=== PATIENT | male | born 1945 | race Caucasian/White ===

== ENCOUNTER 2018-11-01 08:22 | Day surgery (SDC) | payer BC ==
[~2018-11-01 08:22] MED LIST: PRAV20 PO; QUET100 PO
== END 2018-11-01 10:08 | disposition home or self-care (01) ==
LOC: ORSCMMR 08:22 → ORD 11:15 → ORSCMMR 11:15 → ORD 14:00 → ORSCMMR 15:15
PROVIDERS: Orthopaedic Surgery
PROC: 3E0R33Z Introduction of Anti-inflammatory into Spinal Canal, Percutaneous Approach (ICD-10-PCS; principal; 2018-11-01 11:00)
DX: M54.16 Radiculopathy, lumbar region (principal); M48.05 Spinal stenosis, thoracolumbar region; E78.5 Hyperlipidemia, unspecified; F41.9 Anxiety disorder, unspecified; E66.01 Morbid (severe) obesity due to excess calories; Z68.30 Body mass index [BMI] 30.0-30.9, adult; Z79.82 Long term (current) use of aspirin; Z79.899 Other long term (current) drug therapy
CPT/HCPCS: 77003; J1040

== ENCOUNTER 2021-01-07 06:01 | Day surgery (SDC) | payer MEDICARE, BC ==
[~2021-01-07] VITALS: Ht 185.4 cm; Wt 95.0 kg
[~2021-01-07 06:01] MED LIST changes: +ALPR.25 PO; +AMLO5 PO; +Aspir 8181 MG PO; +CELE100 PO; +FLUT1DIS5 INH; +NEBI5 PO
--- NOTE | 2021-01-07 10:38 | NUR ---
10cc air removed from R wrist TR Band. -bleeding or swelling. Pt amb to bathroom /c sba. Tolerated well.
--- NOTE | 2021-01-07 11:01 | NUR ---
R WRIST TR BAND REMOVED. PUNCTURE AREA CLEANED /C NS AND CLOTH DOT DRSG PLACED. R WRIST SPLINT REAPPLIED. -BLEEDING OR SWELLING R WRIST. IV REMOVED. PT AND VERBALIZED UNDERSTANDING OF WRITTEN AND VERBAL D/C INST.
== END 2021-01-07 11:30 | disposition home or self-care (01) ==
LOC: MHTC 06:01
DX: I35.1 Nonrheumatic aortic (valve) insufficiency (principal); T82.09XA Other mechanical complication of heart valve prosthesis, initial encounter; I34.0 Nonrheumatic mitral (valve) insufficiency; R06.02 Shortness of breath; I10 Essential (primary) hypertension; E78.5 Hyperlipidemia, unspecified; Z79.01 Long term (current) use of anticoagulants; Z95.2 Presence of prosthetic heart valve; Y83.2 Surgical operation with anastomosis, bypass or graft as the cause of abnormal reaction of the patient, or of later complication, without mention of misadventure at the time of the procedure; I35.0 Nonrheumatic aortic (valve) stenosis
CPT/HCPCS: 93312; 93325; 93458; 93567; 99152; 99153; A9270; C1769; J0360; J1644; J2250; J2704; J3010; J7030; Q9967

== ENCOUNTER 2023-07-06 08:36 | Day surgery (SDC) | payer MEDICARE, BC ==
[~2023-07-06] VITALS: Ht 185.4 cm; Wt 91.3 kg
[2023-07-06] VITALS (13 sets, daily range): BP systolic 110–167; BP diastolic 63–90
[~2023-07-06 08:36] MED LIST changes: +CHLO25B PO; +FLUO10 PO; +LOSA50 PO; +TIMDOROPSO BOTHEYES
--- NOTE | 2023-07-06 09:23 | NUR ---
History, Chart, Medications and Allergies reviewed before start of procedure. Lungs clear T/O to Auscultation. Patient confirms NPO status and agrees with scheduled surgery. Pre-Op teaching done. Pt verbalizes understanding. Patient reports completing Chlorhexadine shower X2 prior to admission to hospital.
--- NOTE | 2023-07-06 13:49 | NUR ---
PATIENT CAME BACK FROM PACU TODAY AT 1330. POD 0 RIGHT TOTAL HIP PATIENT IS A&OX4. VS ARE WNL AND IS ON RA. PATIENT HAD A SPINAL DURING THE PROCEDURE AND REPORTS NUMBNESS FROM THE WAIST DOWN AT THIS TIME. PEDAL PULSES ARE STRONG AND WARM TO TOUCH. HE ALSO REPORTS HAVING NO PAIN BUT IS AWARE OF HIS PRN PAIN MEDS. HIS RIGHT HIP HAS A PRIMEO DRESSING AND IS C/D/I. HE IS TOLERATING SMALL AMOUNTS OF PO INTAKE AT THIS TIME. DENIES NAUSEA OR VOMITING. HE IS LAYING IN BED WITH CALL LIGHT IN REACH AND AT BEDSIDE.
--- NOTE | 2023-07-06 14:49 | NUR ---
SHIFT SUMMARY: POD 0 RIGHT TOTAL HIP PATIENT IS A&OX4. VS ARE WNL AND IS ON RA. PATIENT STATES "I HAVE TINGLING IN BOTH OF MY LEGS AND I'M ABLE TO MOVE MY TOES BETTER, BUT STILL DON'T HAVE FULL SENSATION". PATIENT DENIES PAIN AT THIS TIME DUE TO THE SPINAL FROM THE PROCEDURE STILL WEARING OFF. HIS RIGHT HIP HAS THE PRIMEO DRESSING THAT IS OPEN TO AIR AND IS C/D/I. PEDAL PULSES ARE STRONG AND WARM TO TOUCH. HE IS TOLERATING PO INTAKE. HE IS LAYING IN BED WITH CALL LIGHT IN REACH AND AT BEDSIDE.
[2023-07-07 03:54] LABS: BASOPHILS ABSOLUTE AUTO 0.02 K/mm3 (0.00-0.23); BASOPHILS PERCENT AUTO 0 % (0-2); EOSINOPHILS ABSOLUTE AUTO 0.02 K/mm3 (0.00-0.68); EOSINOPHILS PERCENT AUTO 0 % (0-6); Hematocrit 38.1 % (37.0-53.0); IMMATURE GRAN ABSOLUTE AUTO 0.02 K/mm3 (0.00-0.10); IMMATURE GRAN PERCENT AUTO 0 % (0-1); LYMPHOCYTES ABSOLUTE AUTO 0.62 K/mm3 (0.84-5.20); LYMPHOCYTES PERCENT AUTO 8 % (21-46); MONOCYTES ABSOLUTE AUTO 0.71 K/mm3 (0.16-1.47); MONOCYTES PERCENT AUTO 9 % (4-13); Mean Corpuscular HGB 31.1 pg (26.0-34.0); Mean Corpuscular HGB Conc 34.1 g/dL (31.5-36.5); Mean Corpuscular Volume 91 fL (80-100); Mean Platelet Volume 9.5 fL (9.1-12.4); NEUTROPHILS ABSOLUTE AUTO 6.88 K/mm3 (1.96-9.15); NEUTROPHILS PERCENT AUTO 83 % (41-73); Platelet Count 112 K/mm3 (150-400); RDW Coefficient Variation 12.4 % (11.7-14.2); RDW Standard Deviation 41.7 fL (35.1-46.3); Red Blood Cell Count 4.18 M/mm3 (4.30-5.90); White Blood Cell Count 8.27 K/mm3 (4.00-11.30)
[2023-07-07 04:11] LABS: Calcium, Blood 8.1 mg/dL (8.5-10.1); Creatinine, Blood 0.88 mg/dL (0.60-1.20); Magnesium, Blood 2.1 mg/dL (1.6-2.4); Potassium, Blood 4.4 mmol/L (3.5-5.5)
[2023-07-07 05:52] VITALS: BP 140/64
--- NOTE | 2023-07-07 06:29 | NUR ---
SHIFT SUMMARY POD #1 R.CLIFTON PT IS A&O X4, UP IN CHAIR DRINKING COFFEE THIS AM, VSS, ON RA, DRSG REMAINS C/D/I, CIRC WNL, POLAR PACK IN PLACE, VOIDING WNL, MEDICATED FOR NAUSEA X2, PT ENC TO EAT A SNACK PRIOR TO PAIN MEDICATIONS, STATES PAIN IS TOLERABLE AT THIS TIME & WILL WAIT FOR BREAKFAST. NO OTHER CHANGES NOTED, WCTM & REPORT TO DAY RN, CALL LIGHT IN REACH
[2023-07-07 07:13] VITALS: BP 147/92
[2023-07-07] MEDS ORDERED: ACET500 PO (09:34)
[2023-07-07] MEDS ORDERED: OXYC5 PO (09:35)
--- NOTE | 2023-07-07 10:30 | NUR ---
MEI VASQUEZ SPOKE w/ DR SETHI. WILL START IV BOLUS. ONLY IV ZOFRAN GIVEN DUE TO PT C/O SLIGHT DIZZINESS @ X's.
--- NOTE | 2023-07-07 12:29 | NUR ---
DISCHARGE CLEARED THERAPY. REPORTS FEELING BETTER POST 500 ML BOLUS BUT DOES STILL HAVE OCC DRY HEAVE. PT BEGS TO GO HOME. STATES HE THINKS HE WILL FEEL BETTER AT HOME HOSPITALS GIVE HIM ANXIETY & HE DID NOT SLEEP LAST NIGHT. TOLERATING ICE CHIPS. & PT UNDERSTAND TO REACH OUT TO DR IF NAUSEA CONT's TOMORROW. ESCORTED OUT VIA WC.
== END 2023-07-07 12:24 | disposition home or self-care (01) ==
LOC: ORSCMMR 08:36 → ORD 10:45 → ORSCMMR 10:45 → SURS 13:20 → ORSCMMR 07-07 12:24
PROVIDERS: Orthopaedic Surgery
PROC: 0SR90JA Replacement of Right Hip Joint with Synthetic Substitute, Uncemented, Open Approach (ICD-10-PCS; principal; 2023-07-06 10:45)
DX: M16.11 Unilateral primary osteoarthritis, right hip (principal); E78.5 Hyperlipidemia, unspecified; I10 Essential (primary) hypertension; F41.9 Anxiety disorder, unspecified; Z79.899 Other long term (current) drug therapy; Z79.82 Long term (current) use of aspirin; Z85.46 Personal history of malignant neoplasm of prostate
CPT/HCPCS: 36415; 72170; 80048; 83735; 85025; 97110; 97116; 97162; A9270; C1713; C1776; J0171; J0690; J0735; J0780; J1885; J2371; J2405; J2704; J2795; J3010; J7040; J7120